=== PATIENT | male | born 1980 | race African-American/Black ===

== ENCOUNTER 2016-08-22 21:39 | Emergency (ER) | payer SELFPAY ==
[2016-08-22 21:55] VITALS: BP 126/79
[2016-08-22] MEDS ORDERED: CEFTRIAXONE INJ 250 MG VIAL IM ONE (22:58)
[2016-08-22] MEDS ORDERED: LIDOCAINE 1% INJ-PF (10 MG/ML) 30 ML SDV INFIL ONE (22:58)
[2016-08-22] MEDS ORDERED: AZITHROMYCIN 250 MG TABLET PO ONE (22:59)
[2016-08-22] MEDS ORDERED: ALBUTEROL SULFATE HFA (90 MCG/PUFF) 8 GM MDI (1 MDI/ER DISP) IH ONE (23:00)
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
--- NOTE | 2016-08-23 08:03 | EKG REPORT ---
SEVERITY:- BORDERLINE ECG - SINUS RHYTHM LEFT AXIS DEVIATION NONSPECIFIC ST-T CHANGES- INFERIOR LEADS : Confirmed by: Prasanna Corbett MD 23-Aug-2016 08:03:03
== END 2016-08-22 23:27 | disposition home or self-care (01) ==
LOC: ER 21:39
DX: R06.02 Shortness of breath (principal); R52 Pain, unspecified; F17.200 Nicotine dependence, unspecified, uncomplicated; Z20.2 Contact with and (suspected) exposure to infections with a predominantly sexual mode of transmission; Z82.49 Family history of ischemic heart disease and other diseases of the circulatory system
CPT/HCPCS: 93005; 99284; 96372; 93010; J3490 ×2; J0696